=== PATIENT | male | born 1970 | race African-American/Black ===

== ENCOUNTER 2017-11-02 12:36 | Emergency (ER) | payer SELFPAY ==
[~2017-11-02] VITALS: Ht 180.3 cm; Wt 129.0 kg
[2017-11-02] MEDS ORDERED: ASPIRIN 325MG TABLET PO ONE (13:45)
[2017-11-02 14:46] LABS: BASOPHILS % 0.6 % (0.0-2.0); EOSINOPHILS % 0.5 % (0.0-5.0); LYMPHOCYTES % 29.7 % (20.0-50.0); MEAN CORPUSCULAR HEMOGLOBIN 22.9 pg (28.0-32.0); MEAN CORPUSCULAR VOLUME 70.3 fL (80.0-94.0); MEAN PLATELET VOLUME 8.2 fl (7.4-10.4); MONOCYTES % 9.5 % (2.0-8.0); NEUTROPHILS % 59.7 % (40.0-76.0); PLATELET 254 x1000/uL (130-400); RED BLOOD CELL COUNT 6.54 mill/uL (4.7-6.1); RED CELL DISTRIBUTION WIDTH 15.6 % (11.6-14.6)
[2017-11-02 14:48] LABS: CHLORIDE 106 mEq/L (98-107)
[2017-11-02 14:51] LABS: PARTIAL THROMBOPLASTIN TIME 23.7 sec (23.4-31.0); PROTHROMBIN TIME 10.4 sec (9.1-11.1)
[2017-11-02 19:14] VITALS: BP 150/105
== END 2017-11-02 19:17 | disposition home or self-care (01) ==
LOC: ER 13:18
DX: R55 Syncope and collapse (principal); R07.9 Chest pain, unspecified; R03.0 Elevated blood-pressure reading, without diagnosis of hypertension; F17.200 Nicotine dependence, unspecified, uncomplicated; E66.9 Obesity, unspecified; Z71.6 Tobacco abuse counseling; Z88.0 Allergy status to penicillin
CPT/HCPCS: 36415; 71045; 80053; 84484; 85025; 85610; 85730; 93005; 99285; 99406; Z7610